=== PATIENT | male | born 1990 | race Caucasian/White ===

== ENCOUNTER 2016-09-16 19:07 | Emergency (ER) | payer MEDICAID ==
[~2016-09-16] VITALS: Ht 190.5 cm; Wt 149.7 kg
[2016-09-16 19:07] VITALS: BP 152/112
[2016-09-16] MEDS ORDERED: KETOROLAC TROMETHAMINE INJ 30 MG/ML VIAL ONE (20:01)
[2016-09-16] MEDS ORDERED: KETOROLAC TROMETHAMINE INJ 30 MG/ML VIAL IM ONE (20:30)
== END 2016-09-16 20:13 | disposition home or self-care (01) ==
LOC: ER 19:11
DX: J36 Peritonsillar abscess (principal)
CPT/HCPCS: 96372; 99283; A4606; J1885; Z7610